=== PATIENT | male | born 1965 | race Asian ===

== ENCOUNTER 2016-06-12 21:32 | Emergency (ER) | payer BC ==
[~2016-06-12] VITALS: Ht 188 cm; Wt 122.5 kg
== END 2016-06-12 23:39 | disposition home or self-care (01) ==
LOC: ED 21:32
DX: M25.562 Pain in left knee (principal); W19.XXXA Unspecified fall, initial encounter
CPT/HCPCS: 99283

== ENCOUNTER 2017-04-04 16:58 | Outpatient (CLI) | payer BC | END 2017-04-04 19:07 | disposition home or self-care (01) | LOC: LABW 16:58 | DX: R94.5 Abnormal results of liver function studies (principal) | CPT/HCPCS: 36415; 80074 ==

== ENCOUNTER 2018-01-12 09:42 | Emergency (ER) | payer BC ==
[~2018-01-12] VITALS: Ht 188 cm; Wt 120.2 kg
[2018-01-12 09:48] VITALS: TEMP 97.5
[2018-01-12 10:39] LABS: PLATELET COUNT 221 K/uL (142-355)
[2018-01-12 10:54] LABS: POTASSIUM 3.9 mmol/L (3.6-5.2)
[2018-01-12 11:50] VITALS: BP 130/80
== END 2018-01-12 12:00 | disposition home or self-care (01) ==
LOC: ED 09:42
DX: M47.896 Other spondylosis, lumbar region (principal); M51.26 Other intervertebral disc displacement, lumbar region; M51.27 Other intervertebral disc displacement, lumbosacral region; S20.212A Contusion of left front wall of thorax, initial encounter; S30.1XXA Contusion of abdominal wall, initial encounter; S40.012A Contusion of left shoulder, initial encounter; V69.9XXA Occupant (driver) (passenger) of heavy transport vehicle injured in unspecified traffic accident, initial encounter
CPT/HCPCS: 36415; 74022; 80053; 81000; 85027; 99283

== ENCOUNTER 2021-04-12 22:56 | Emergency (ER) | payer BC ==
[~2021-04-12] VITALS: Ht 185.4 cm; Wt 127.9 kg
[2021-04-13 00:46] VITALS: BP 171/92; TEMP 99.6
== END 2021-04-13 00:46 | disposition home or self-care (01) ==
LOC: ED 22:56
DX: R10.11 Right upper quadrant pain (principal); M54.59 Other low back pain; G89.29 Other chronic pain; E66.8 Other obesity
CPT/HCPCS: 81000; 96372; 99283; J1885